=== PATIENT | female | born 1990 | race Caucasian/White ===

== ENCOUNTER 2017-04-08 15:32 | Emergency (ER) | payer MEDICAID, SELFPAY ==
[2017-04-08 15:43] VITALS: BP 121/71; PULSE 100; RESP 16; TEMP 36.6; O2SAT 97; BMI 19.9
[2017-04-08 16:07] VITALS: BP 121/71; PULSE 100; RESP 16; TEMP 36.6; O2SAT 97; BMI 20.9
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
== END 2017-04-08 16:46 | disposition home or self-care (01) ==
LOC: ER 16:00 → UTC 16:02
PROVIDERS: Emergency Provider Physician Assistant; Family Provider Nurse Practitioner Obstetrics & Gynecology; PCP Nurse Practitioner Obstetrics & Gynecology
DX: M62.830 Muscle spasm of back (principal); H60.501 Unspecified acute noninfective otitis externa, right ear; F17.210 Nicotine dependence, cigarettes, uncomplicated
CPT/HCPCS: 72110; 99202

== ENCOUNTER → 2020-07-02 12:47 | Outpatient (CLI) | payer OTHER, SELFPAY ==
--- NOTE | 2020-07-02 12:52 | US_ITS ---
PROCEDURE: MM DIG MAMM BI DX W/CAD Digital Breast Tomosynthesis Included CLINICAL INDICATION: breast mass COMPARISON: US US BREAST RT COMPLETE from 07/02/2020 US US BREAST LT COMPLETE from 07/02/2020 TECHNIQUE: Standard CC and MLO images and 3D Tomosynthesis was obtained. R2 CAD reviewed. FINDINGS: Average to dense fibroglandular tissue. No malignant appearing mass or malignant-appearing microcalcification evident. There is some asymmetry in the superior aspect of the right breast as seen on the MLO view but non on the repeat MLO nor confirmed by the tomographic images. Patient reports an area of palpable concern in the left breast at the 1 o'clock region. No malignant appearing mass or malignant-appearing microcalcification apparent. Right breast ultrasound: No cyst or evident. Behind the nipple there is isoechoic region which measures 9 x 4 mm wider than tall well-circumscribed with no obvious spiculation or calcification possibly due to small fibroadenoma. This may also be related to fibroglandular tissue. Six-month follow-up suggested. Left breast ultrasound: No cystic or solid lesions apparent. Fibroglandular tissue noted in the area of palpable concern. Small axillary nodes are present. IMPRESSION: No malignant appearing mass apparent. No abnormality corresponding to the area of palpable concern. Negative mammogram and negative ultrasound does not exclude the possibility of malignancy. If there is indeed a palpable nodule then, it should be managed on a clinical basis. Probably benign nodule noted on the ultrasound of the right breast for which six-month follow-up is suggested BI-RAD Category: 3 Probably Benign Finding Short Term Follow-up FOLLOW-UP: 6M 6Month Follow-up (A letter has been sent to the patient regarding results of the study.) Dictated by: Finn Herrera MD 07/07/2020 16:10 Finn Herrera MD in OV 07/07/2020 16:10
== END ==
PROVIDERS: PCP Internal Medicine Adolescent Medicine; Visit Provider Nurse Practitioner Obstetrics & Gynecology
DX: N63.42 Unspecified lump in left breast, subareolar (principal); N64.4 Mastodynia; N60.12 Diffuse cystic mastopathy of left breast
CPT/HCPCS: 76641; 77062; 77066; G0279

== ENCOUNTER 2020-09-21 12:23 | Emergency (ER) | payer OTHER, SELFPAY ==
[2020-09-21 12:36] VITALS: BP 104/65; PULSE 80; RESP 12; TEMP 36.9; O2SAT 97; BMI 24.7
[2020-09-21 12:47] LABS: UTC Strep Screen (Rapid) Positive (Negative)
--- NOTE | 2020-09-21 12:49 | HMH.EDUTC ---
[facility] [place] Clinical Impression: Strep throat Disposition: Home, Self-Care Condition on Discharge: Good Instructions: Strep Throat, DI for Strep Throat Additional Instructions: Drink plenty of fluids. Take tylenol or ibuprofen for pain or fever. Take the medications as directed. Follow up with your regular doctor. GO TO THE ER FOR ANY WORSENING SYMPTOMS Throw your tooth brush away and get a new one. Prescriptions: Brompheniramine/Pseudoephed/Dm [Bromfed Dm Cough Syrup] 5 ml PO Q6HP PRN #240 syrup PRN Reason: Cough Transmission Status: Received by [facility] Amoxicillin [Amoxicillin 500mg Tab] 500 mg PO TID 10 Days #30 tab Transmission Status: Received by [facility] predniSONE [Deltasone 10mg tablet] 10 mg PO BID 3 Days #6 tab Transmission Status: Received by [facility] Referrals: Satish Downs MD [Primary Care Provider] - Forms: Work/School Release Time of Disposition: 12:52 Medical Decision Making - Medical Records Medical records reviewed: No: I reviewed the patient's medical records. - Gerry Inquiry Pt receiving controlled substance: No Vital Signs: 09/21/20 12:36 09/21/20 12:59 Temperature 98.5 F 98.5 F Temperature Source Oral Pulse Rate 78 Pulse Rate [Left] 80 Respiratory Rate 12 16 Blood Pressure 109/71 L Blood Pressure [Right Arm] 104/65 L Blood Pressure Mean [Right Arm] 78 Blood Pressure Source [Right Arm] Automatic Cuff 02 Sat by Pulse Oximetry 97 - Lab Data Lab results reviewed: Yes: I reviewed the patient's lab results. Lab Results 09/21/20 12:39: Strep Scn Rapid Clinic Positive A [facility] [place] HPI - General Stated complaint: sore throat Time Seen by Provider: 09/21/20 12:49 Mode of Arrival: Ambulatory Source of Information: Patient Limitations: No Limitations Description of Symptoms (Recalled from Triage Doc. by RN): pt c/o a sore throat. HEENT Symptoms (Recalled from RN notes): Yes (sore throat) Resp Symptoms (Recalled from RN notes): No Skin Symptoms (Recalled from RN notes): No MS Symptoms (Recalled from RN notes): No Functional Status (Recalled from RN notes): na - History of Present Illness Provider Complaint: She states that she has had a sore throat for the past 2 days. She has had lymph nodes swollen on the right side of her neck also. She has had a very poor appetite also. - Related Data Home Medications Medication Instructions Recorded Confirmed vitamin B complex 1 tab PO DAILY 07/02/20 07/02/20 Previous Rx's Medication Instructions Recorded Amoxicillin [Amoxicillin 500mg Tab] 500 mg PO TID 10 Days #30 tab 09/21/20 Brompheniramine/Pseudoephed/Dm 5 ml PO Q6HP PRN #240 syrup 09/21/20 [Bromfed Dm Cough Syrup] predniSONE [Deltasone 10mg tablet] 10 mg PO BID 3 Days #6 tab 09/21/20 Allergies Allergy/AdvReac Type Severity Reaction Status Date / Time LEMON Allergy Intermediate S-SWELLS-OR Uncoded 07/02/20 09:09 AL/THROAT - Worker's Comp Is this a Worker's Comp case?: No [facility] History - Hepatitis A Screen Drug use history?: No High risk sexual behaviors?: No History of sexually transmitted infection?: No Currently employed?: No Childcare worker?: No Do you have indoor plumbing?: Yes Do you have electricity?: Yes Attestation statement:: This patient has been screened for Hepatitis A risk factors. 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 #5, spontaneous ROS Obtain
[2020-09-21 12:59] VITALS: BP 109/71; PULSE 78; RESP 16; TEMP 36.9
== END 2020-09-21 13:01 | disposition home or self-care (01) ==
PROVIDERS: Emergency Provider Nurse Practitioner Family; PCP Internal Medicine Adolescent Medicine
DX: J02.0 Streptococcal pharyngitis (principal)
CPT/HCPCS: 87880; 99202; G0463

== ENCOUNTER 2020-11-18 12:34 | Emergency (ER) | payer OTHER, SELFPAY ==
[2020-11-18 14:20] VITALS: BP 112/73; PULSE 77; RESP 18; TEMP 37; O2SAT 96; BMI 22.7
[2020-11-18 14:47] LABS: UTC Strep Screen (Rapid) Positive (Negative)
--- NOTE | 2020-11-18 14:48 | HMH.EDUTC ---
[facility] [place] Clinical Impression: Strep throat Disposition: Home, Self-Care Condition on Discharge: Good Instructions: Strep Throat, DI for Strep Throat Additional Instructions: *Monitor Temp, Over the counter Motrin or Tylenol as directed/as needed Tylenol every 4 hours and Motrin every 6 hours (as long as your family doctor has told you that you can take it) for fever or pain. and straight to ER if unable to lower temp less than 101.0 after medication given *Warm salt water gargles may help to soothe the throat *Throat Lozenges *Warm fluids like tea with honey may help to soothe the throat *Sleep elevated *Humidifier/Vaporizer Take medication as prescribed Follow up IMMEDIATELY for new or worsening symptoms or no Noticeable improvement over the next 48-72 hours. 911 for difficulty breathing or swallowing Prescriptions: Amoxicillin [Amoxicillin 500mg Cap] 500 mg PO TID #30 cap Transmission Status: Pending to [facility] Referrals: Satish Downs MD [Primary Care Provider] - As needed Time of Disposition: 14:54 Medical Decision Making - Gerry Inquiry Pt receiving controlled substance: No Gerry was queried for this patient: No Vital Signs: 11/18/20 14:20 Temperature 98.6 F Temperature Source Oral Pulse Rate [Right Brachial] 77 Respiratory Rate 18 Blood Pressure [Right Arm] 112/73 Blood Pressure Mean [Right Arm] 86 Blood Pressure Source [Right Arm] Automatic Cuff Blood Pressure Position [Right Arm] Sitting 02 Sat by Pulse Oximetry 96 Oxygen Delivery Method Room Air - Lab Data Lab results reviewed: Yes: I reviewed the patient's lab results. Lab Results 11/18/20 14:25: Strep Scn Rapid Clinic Positive A [facility] [place] HPI - General Stated complaint: sore throat Time Seen by Provider: 11/18/20 14:48 Mode of Arrival: Ambulatory Source of Information: Patient Limitations: No Limitations Description of Symptoms (Recalled from Triage Doc. by RN): PATIENT C/O SORE THROAT SINCE YESTERDAY HEENT Symptoms (Recalled from RN notes): Yes Resp Symptoms (Recalled from RN notes): No Skin Symptoms (Recalled from RN notes): No MS Symptoms (Recalled from RN notes): No Functional Status (Recalled from RN notes): WNL - History of Present Illness Provider Complaint: Patient state that she noticed her throat was feeling scratchy and hurting yesterday and has continued to get worse States that feels like it did when she had strep throat - Related Data Previous Rx's Medication Instructions Recorded Amoxicillin [Amoxicillin 500mg 500 mg PO TID #30 cap 11/18/20 Cap] Allergies Allergy/AdvReac Type Severity Reaction Status Date / Time LEMON Allergy Intermediate S-SWELLS-OR Uncoded 07/02/20 09:09 AL/THROAT - Worker's Comp Is this a Worker's Comp case?: No [facility] History - Hepatitis A Screen Drug use history?: No High risk sexual behaviors?: No History of sexually transmitted infection?: No Currently employed?: No Childcare worker?: No Do you have indoor plumbing?: Yes Do you have electricity?: Yes Attestation statement:: This patient has been screened for Hepatitis A risk factors. 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 #5, spontaneous ROS Obtained: Yes All systems reviewed & no additional complaints, Yes Systems reviewed as appropriate & no additional complaints - Constitutional Constitutional: Reports headache(s) - Eyes Eyes: Reports system reviewed and no ad
[2020-11-18 14:55] VITALS: BP 112/73; PULSE 77; RESP 18; TEMP 37; O2SAT 96
[2020-11-18 14:58] VITALS: BP 122/74; PULSE 80; RESP 16; TEMP 37.2; O2SAT 98
== END 2020-11-18 15:00 | disposition home or self-care (01) ==
PROVIDERS: Emergency Provider Nurse Practitioner; PCP Internal Medicine Adolescent Medicine
DX: J02.0 Streptococcal pharyngitis (principal)
CPT/HCPCS: 87880; 99202; G0463

== ENCOUNTER 2022-02-08 14:18 | Emergency (ER) | payer OTHER, SELFPAY ==
[2022-02-08] VITALS (7 sets, daily range): BP systolic 95–117; BP diastolic 67–73; PULSE 56–78; RESP 16; TEMP 36.7; O2SAT 97–100; BMI 24.3
--- NOTE | 2022-02-08 14:46 | HMH.EDGENADL ---
Discharge Plan Disposition Patient Disposition: Home, Self-Care Condition: Good Prescriptions Prescriptions: New ibuprofen 600 mg tablet 600 mg PO Q8H PRN (Reason: pain) Qty: 30 0RF ondansetron 4 mg tablet,disintegrating 4 mg PO Q6H PRN (Reason: nausea and vomiting) Qty: 12 0RF No Action amoxicillin 500 MG capsule 500 mg PO TID Qty: 30 0RF Referrals Follow up/Referrals: Satish Downs MD [Primary Care Provider] - See instructions Activity Restrictions/Add. Instructions Additional Instructions/Restrictions: You have been evaluated for lower abdominal pain, diagnosed with an ovarian cyst. The cyst is quite large, 7 cm. It is very important that you follow-up with an PLACEMENT ASSISTANT for repeat evaluation and ultrasound. Take anti-inflammatory medication, ibuprofen. Return to the emergency department at once for any new or worsening symptoms, severe pain, vomiting, fevers, other concerns Clinical Impressions Clinical Impression: Ovarian cyst Instructions Patient Instructions: DI for Ovarian Cyst Discharge ED Provider: Shannon Gabriel Adult HPI General Chief complaint: Abdominal Pain Stated complaint: severe abd pian left side Time Seen by Provider: 02/08/22 14:39 History of Present Illness HPI narrative: 31-year-old female presenting to the emergency department lower abdominal pain. Pain is located on the left side. Described as sharp, stabbing. Pain started suddenly this morning around 5:30 AM while she was at work. Has been constant since onset. Occasionally motion makes it better. She is currently on her menses. This has been a longer menstrual cycle than normal. She has a history of ovarian cysts, but never anything like this. No hematuria or dysuria. No history of kidney stones. No vaginal discharge or concern for urinary tract infection. She took 1000 mg Tylenol a few hours ago. No other medications prior to arrival. With fevers, chills, vomiting. No constipation, diarrhea, changes in bowel habits. Related Data Previous Rx's Medication Instructions Recorded amoxicillin 500 mg capsule 500 mg PO TID #30 caps 11/18/20 ibuprofen 600 mg tablet 600 mg PO Q8H PRN pain #30 tabs 02/08/22 ondansetron 4 mg disintegrating 4 mg PO Q6H PRN nausea and 02/08/22 tablet vomiting #12 tabs Allergies Allergy/AdvReac Type Severity Reaction Status Date / Time LEMON Allergy Intermediate S-KIRILLS-OR Uncoded 07/02/20 09:09 AL/THROAT PFSH PFS Social History Smoking Status: Current every day smoker tobacco type: cigarettes alcohol intake: never substance use type: denies use current occupational status: other Travel in the last 8 weeks: None ROS Obtained: Yes All systems reviewed & no additional complaints except as documented Constitutional Constitutional: Denies chills, Denies fever(s) and Denies headache(s) ENT Ears, Nose, Mouth, and Throat: Denies dizziness and Denies headache(s) Cardiovascular Cardiovascular: Denies chest pain and Denies dyspnea Respiratory Respiratory: Denies cough and Denies dyspnea Gastrointestinal Gastrointestingal: Reports abdominal pain (left lower) and cramping; Denies constipation, diarrhea, nausea or vomiting Genitourinary Female Genitourinary: Denies dysuria, Denies hematuria, Reports menorrhagia and Reports pelvic pain Musculoskeletal Musculoskeletal: Denies back pain Neurologic Neurologic: Denies dizziness and Denies headache(s) Hematologic/Lymphatic Henatologic/Lymphatic: Denies easy bleeding and Denies easy bruising Physical Exam General General appearance: alert and in no apparent distress Head Head exam: atraumatic and normocephalic ENT ENT exam: Present normal exam, normal oropharynx and mucous membranes moist Respiratory Respiratory exam: Present normal lung sounds bilaterally; Absent respiratory distress or wheezes Cardiovascular Cardiovascular exam: Present regular rate and normal rhythm Abdominal Exam Abdominal exam: Pres
[2022-02-08 14:58] LABS: Chloride 105 mmol/L (98-107); Potassium 3.9 mmoL/L (3.5-5.1); Sodium 141 mmol/L (136-145)
[2022-02-08 14:59] LABS: Basophils # 0.1 K/mm3 (0-0.2); Basophils % 0.6 % (0.1-2.0); Eosinophils # 0.1 K/mm3 (0.0-0.4); Eosinophils % 1.2 % (0.1-12.0); Hematocrit 40.9 % (37.0-47.0); Hemoglobin 13.6 g/dL (12.2-16.2); Lymphocytes # 1.3 K/mm3 (0.7-4.5); Lymphocytes % 17.1 % (10-50); Mean Corpuscular HGB Conc 33.4 g/dL (31.8-35.4); Mean Corpuscular Hemoglobin 30.7 pg (27.0-31.2); Mean Corpuscular Volume 92.1 fl (81-99); Mean Platelet Volume 8.2 fl (7.4-10.4); Monocytes # 0.4 K/mm3 (0.1-1.0); Neutrophils # 5.8 K/mm3 (1.8-7.8); Neutrophils % 76.2 % (37.0-80.0); Platelet Count 302 K/mm3 (142-424); Red Blood Count 4.44 M/mm3 (4.20-5.40); Red Cell Distribution Width 13.4 % (11.5-17.5); White Blood Count 7.6 K/mm3 (4.8-10.8)
[2022-02-08 15:01] LABS: Alanine Aminotransferase 20 U/L (12-78); Albumin Level 4.5 g/dl (3.5-5.0); Albumin/Globulin Ratio 1.5 (1.1-1.8); Alkaline Phosphatase 87 U/L (38-126); Anion Gap 12.9 mEq/L (5-15); Aspartate Amino Transferase 33 U/L (14-36); Bilirubin,Total 0.4 mg/dl (0.2-1.3); Blood Urea Nitrogen 4 mg/dl (7-17); Carbon Dioxide 27 mmol/L (22.0-30.0); Estimated Glomerular Filt Rate 98 ml/min (>60); GFR (African American) 119 ML/MIN (>60); Total Protein,Serum 7.5 g/dl (6.3-8.2)
[2022-02-08 15:02] LABS: Calcium 9.6 mg/dl (8.4-10.2); Glucose 93 mg/dl (74-100)
--- NOTE | 2022-02-08 15:03 | PC.NURSE ---
PT DOES NOT WANT TORADOL AT THIS TIME SHE SAID SHE WANTED TO WAIT
--- NOTE | 2022-02-08 15:08 | PC.NURSE ---
pt aware needs a urine specimen, pt states unable to urinate at this time
--- NOTE | 2022-02-08 15:09 | CT_ITS ---
FINAL REPORT CLINICAL HISTORY: lower abdominal pain FINDINGS: CT OF THE ABDOMEN AND PELVIS WITH CONTRAST Axial CT images of the abdomen and pelvis were obtained after the administration of oral and iv contrast. Coronal reformatted images were also obtained and reviewed.This study was performed with techniques to keep radiation doses as low as reasonably achievable (ALARA). Individualized dose reduction techniques using automated exposure control or adjustment of mA and/or kV according to the patient's size were employed. Abdomen: The lung bases are clear. The heart is normal in size. There is a 6 mm low-attenuation mass in the posterior right hepatic lobe that is difficult to characterize but may represent a small cyst. The gallbladder is present. The spleen is unremarkable. No adrenal mass is present. The pancreas has an unremarkable appearance. The kidneys are normal, without evidence of mass or hydronephrosis. The aorta is normal in caliber. There is no free fluid or adenopathy. There is a small umbilical hernia containing fat. Pelvis: The appendix is normal. The urinary bladder is unremarkable. There are small follicles in the ovaries without a dominant mass. There is a small amount of pelvic free fluid which could be physiologic or reactive. There is a cystic mass in the lower pelvis measuring 9.4 x 6.8 cm in maximal axial dimensions with a calcification along the right side and focal areas of abnormal soft tissue thickening. There is no evidence of bowel obstruction. IMPRESSION: Cystic mass in the lower pelvis could represent cystic ovarian neoplasm versus cyst. Reviewed, Interpreted and Dictated by Curt Combs III, MD Transcribed by Saturnino Mendes Authenticated and [facility]
[2022-02-08 15:11] LABS: HCG Qualitative, Serum Negative (Negative)
[2022-02-08 15:29] LABS: Microscopic, Urine URINE MICROSCOPIC (MICROSCOPIC)
[2022-02-08 15:35] LABS: Appearance,Urine CLEAR (Clear); Bilirubin,Urine Negative (Negative); Blood, Urine 2+ (Negative); Color,Urine YELLOW (Yellow); Glucose,Urine (UA) Negative (Negative); Ketones,Urine Negative (Negative); Leukocyte Esterase,Urine TRACE (Negative); Nitrate,Urine Negative (Negative); Protein,Urine Negative (Negative); Specific Gravity, Urine >= 1.030 (1.005-1.030); Urobilinogen,Urine 0.2 EU/dl (0.2)
[2022-02-08 15:53] LABS: Bacteria,Urine Trace /lpf
--- NOTE | 2022-02-08 17:19 | US_ITS ---
PROCEDURE INFORMATION: Exam: US Pelvis, Transvaginal Exam date and time: 02/08/2022 5:21 PM Age: 31 years old Clinical indication: Pelvic pain; Additional info: RO torsion TECHNIQUE: Imaging protocol: Real-time transvaginal pelvic ultrasound with image documentation. Transvaginal imaging was used for better evaluation of the endometrium, adnexa, and/or cervix. COMPARISON: TVP US TRANSVAGINAL PREG 04/28/2016 3:37 PM FINDINGS: Uterus: The uterus measures 9.7 x 4.6 x 5.2 cm. No focal myometrial lesions . Endometrium measures 6.1 mm. Cervix: There is a 0.5 cm nabothian cyst Right ovary/adnexa: The right ovary measures 3.9 x 2.7 x 2.0 cm (11.3 mL) Ovarian stroma is unremarkable. There is normal arterial inflow and venous outflow. Left ovary/adnexa: The left ovary measures 8.3 x 8.1 x 7.0 cm (250.4 mL ) there are 2 dominant follicles measuring 8.9 and 6.9 cm respectively. Ovarian stroma is otherwise unremarkable. There is normal arterial inflow and venous outflow. Intraperitoneal space: No free fluid. IMPRESSION: Two simple left ovarian cysts/dominant follicles. In cyst greater than 7 cm follow-up either in 2-6 months for resolution/recharacterization or in 6-12 months for growth rate assessment.
--- NOTE | 2022-02-08 17:23 | PC.NURSE ---
rad notified of u/s order, staff states she is in with a pt and then will get staff called in
== END 2022-02-08 18:37 | disposition home or self-care (01) ==
PROVIDERS: Emergency Provider Emergency Medicine; PCP Internal Medicine Adolescent Medicine
DX: N83.292 Other ovarian cyst, left side (principal)
CPT/HCPCS: 74177; 76830; 80053; 81001; 84703; 85025; 96374; 99285; Q9967

== ENCOUNTER 2022-04-17 12:54 | Emergency (ER) | payer OTHER, SELFPAY ==
[2022-04-17 12:56] VITALS: BP 110/79; PULSE 68; RESP 18; TEMP 36.5; O2SAT 96; BMI 24.7
--- NOTE | 2022-04-17 12:58 | HMH.EDABDPAI ---
Discharge Plan Disposition Patient Disposition: Home, Self-Care Condition: Fair Prescriptions Prescriptions: New hydrocodone-acetaminophen 5-325 mg tablet 1 tab PO TID PRN (Reason: pain) Qty: 14 0RF No Action amoxicillin 500 MG capsule 500 mg PO TID Qty: 30 0RF ibuprofen 600 mg tablet 600 mg PO Q8H PRN (Reason: pain) Qty: 30 0RF ondansetron 4 mg tablet,disintegrating 4 mg PO Q6H PRN (Reason: nausea and vomiting) Qty: 12 0RF Referrals Follow up/Referrals: Rachel Hernandez DO [Staff Physician] - 3 days (Large left-sided hemorrhagic ovarian cyst., Possible teratoma.) Satish Downs MD [Primary Care Provider] - See instructions Activity Restrictions/Add. Instructions Additional Instructions/Restrictions: Return to the emergency department immediately if you feel worse in any way. Follow-up with Dr. Hernandez on Tuesday. Call her office for an exact appointment. Clinical Impressions Clinical Impression: Hemorrhagic cyst of left ovary Instructions Patient Instructions: DI for Ovarian Cyst, DI for Acute Abdominal Pain Discharge ED Provider: Johnny Yap Abdominal Pain HPI General Chief Complaint: Abdominal Pain Stated Complaint: abd pain Time Seen by Provider: 04/17/22 12:58 Mode of Arrival: Ambulatory History of Present Illness HPI narrative: The patient presents to the emergency department complaining of left-sided abdominal pain for the last 5 days or so. She was seen in another emergency department on and was told that a large left ovarian cyst had ruptured. She was discharged with Toradol and Zofran at that time. She states that the pain is still quite significant despite the Toradol. She also states that she feels swollen. She denies any vaginal bleeding. She has had a tubal ligation. She also denies diarrhea or vomiting. Related Data Previous Rx's Medication Instructions Recorded amoxicillin 500 mg capsule 500 mg PO TID #30 caps 11/18/20 ibuprofen 600 mg tablet 600 mg PO Q8H PRN pain #30 tabs 02/08/22 ondansetron 4 mg disintegrating 4 mg PO Q6H PRN nausea and 02/08/22 tablet vomiting #12 tabs hydrocodone 5 mg-acetaminophen 325 1 tab PO TID PRN pain #14 tabs 04/17/22 mg tablet Allergies Allergy/AdvReac Type Severity Reaction Status Date / Time LEMON Allergy Intermediate S-SWELLS-OR Uncoded 07/02/20 09:09 AL/THROAT [facility] Disclaimer: The information contained in this section may have been updated after the patient was seen, as this information can be updated by other users. Social History Smoking Status: Current some day smoker tobacco type: cigarettes alcohol intake: never substance use type: denies use current occupational status: other Travel in the last 8 weeks: None ROS Obtained: Yes All systems reviewed & no additional complaints except as documented ENT Ears, Nose, Mouth, and Throat: Reports disequilibrium, Reports dizziness and Reports other (The patient feels congested on the right side of her sinuses.) Neurologic Neurologic: Reports disequilibrium and Reports dizziness Physical Exam General General appearance: alert Head Head exam: atraumatic Eye Eye exam: Present normal appearance; Absent scleral icterus ENT ENT exam: Present normal exam Neck Neck exam: Present normal inspection and full ROM; Absent tenderness or meningismus Chest Chest inspection: Present normal inspection and symmetric chest wall rise; Absent tenderness Respiratory Respiratory exam: Present normal lung sounds bilaterally; Absent respiratory distress or accessory muscle use Cardiovascular Cardiovascular exam: Present regular rate, normal rhythm and normal heart sounds Abdominal Exam Abdominal exam: Present soft, tenderness and normal bowel sounds; Absent distention, psoas sign, obturator sign, heel tap sign, Wyatt's sign, Rovsing's sign, tenderness at McBurney's Point or mass Abdominal tenderness: Present LLQ (mild) Extremities Exam Extremities e
[2022-04-17 13:15] LABS: Microscopic, Urine URINE MICROSCOPIC (MICROSCOPIC)
[2022-04-17 13:16] LABS: Appearance,Urine SL CLOUDY (Clear); Blood, Urine TRACE-I (Negative); Color,Urine YELLOW (Yellow); Glucose,Urine (UA) Negative (Negative); Ketones,Urine TRACE (Negative); Leukocyte Esterase,Urine Negative (Negative); Nitrate,Urine POSITIVE (Negative); PH,Urine 5.5 (5.0-8.5); Protein,Urine Negative (Negative); Specific Gravity, Urine >= 1.030 (1.005-1.030); Urobilinogen,Urine 0.2 EU/dl (0.2)
[2022-04-17 13:24] LABS: Bilirubin,Urine 1+ (Negative)
--- NOTE | 2022-04-17 13:27 | CT_ITS ---
PROCEDURE INFORMATION: Exam: CT Abdomen And Pelvis With Contrast Exam date and time: 04/17/2022 1:55 PM Age: 32 years old Clinical indication: Abdominal pain; Flank; Left lower quadrant (llq); Additional info: Left-sided abdominal pain TECHNIQUE: Imaging protocol: Computed tomography of the abdomen and pelvis with contrast. Radiation optimization: All CT scans at this facility use at least one of these dose optimization techniques: automated exposure control; mA and/or kV adjustment per patient size (includes targeted exams where dose is matched to clinical indication); or iterative reconstruction. Contrast material: ISOVUE; Contrast volume: 75 ml; Contrast route: IV; Other protocol: This patient has received [address] and 0 known cardiac nuclear medicine studies in the 12 months prior to the current study. COMPARISON: CT ABDOMEN PELVIS W CON 02/08/2022 3:33 PM FINDINGS: Liver: Normal. No mass. Gallbladder and bile ducts: Normal. No calcified stones. No ductal dilation. Pancreas: Normal. No ductal dilation. Spleen: Normal. No splenomegaly. Adrenal glands: Normal. No mass. Kidneys and ureters: Normal. No hydronephrosis. Stomach and bowel: Unremarkable. No obstruction. No mucosal thickening. Appendix: No evidence of appendicitis. Intraperitoneal space: Unremarkable. No free air. No significant fluid collection. Vasculature: Flow within the superior mesenteric artery, celiac trunk and inferior mesenteric arteries. Lymph nodes: Unremarkable. No enlarged lymph nodes. Urinary bladder: Unremarkable as visualized. Reproductive: 2.6 cm ovarian cyst on the right. Moderate amount of fluid in the pelvis. Probable hemorrhagic ovarian cyst. Large predominantly cystic mass extending out of the pelvis measuring approximately 8 cm x 10 cm x 10 cm. Calcification superiorly resembles a tooth. Possible teratoma. Possible ovarian cyst versus cyst adenoma/cystadenocarcinoma. Bones/joints: Unremarkable. No acute fracture. Soft tissues: Unremarkable. IMPRESSION: 1. 2.6 cm ovarian cyst on the right. Moderate amount of fluid in the pelvis. Probable hemorrhagic ovarian cyst. 2. Large predominantly cystic mass extending out of the pelvis measuring approximately 8 cm x 10 cm x 10 cm. Calcification superiorly resembles a tooth. Possible teratoma. Possible ovarian cyst versus cyst adenoma/cystadenocarcinoma. Previously noted.
[2022-04-17 13:31] LABS: Bacteria,Urine 4+ /lpf; Squamous Epithelial Cell,Urine Occasional #/hpf (0-5)
[2022-04-17 13:41] LABS: Basophils # 0.1 K/mm3 (0-0.2); Basophils % 0.9 % (0.1-2.0); Eosinophils # 0.1 K/mm3 (0.0-0.4); Eosinophils % 2.6 % (0.1-12.0); Hematocrit 35.8 % (37.0-47.0); Hemoglobin 12.4 g/dL (12.2-16.2); Lymphocytes # 1.2 K/mm3 (0.7-4.5); Mean Corpuscular HGB Conc 34.7 g/dL (31.8-35.4); Mean Corpuscular Hemoglobin 31.7 pg (27.0-31.2); Mean Corpuscular Volume 91.4 fl (81-99); Monocytes # 0.3 K/mm3 (0.1-1.0); Monocytes % 6.1 % (1.7-9.3); Neutrophils # 3.4 K/mm3 (1.8-7.8); Neutrophils % 67.4 % (37.0-80.0); Platelet Count 245 K/mm3 (142-424); Red Blood Count 3.92 M/mm3 (4.20-5.40); Red Cell Distribution Width 13.6 % (11.5-17.5); White Blood Count 5.1 K/mm3 (4.8-10.8)
[2022-04-17 13:44] LABS: Chloride 108 mmol/L (98-107); Potassium 3.6 mmoL/L (3.5-5.1); Sodium 142 mmol/L (136-145)
[2022-04-17 13:47] LABS: Alanine Aminotransferase 18 U/L (12-78); Albumin Level 4.1 g/dl (3.5-5.0); Albumin/Globulin Ratio 1.5 (1.1-1.8); Alkaline Phosphatase 59 U/L (38-126); Anion Gap 10.6 mEq/L (5-15); Aspartate Amino Transferase 25 U/L (14-36); Bilirubin,Total 0.4 mg/dl (0.2-1.3); Blood Urea Nitrogen 7 mg/dl (7-17); Calcium 8.4 mg/dl (8.4-10.2); Carbon Dioxide 27 mmol/L (22.0-30.0); Creatinine Clearance Estimated 117 mL/min (50-200); Estimated Glomerular Filt Rate 98 ml/min (>60); GFR (African American) 118 ML/MIN (>60); Globulin 2.7 g/dL (1.3-3.2); Glucose 89 mg/dl (74-100); Total Protein,Serum 6.8 g/dl (6.3-8.2)
[2022-04-17 14:00] LABS: HCG Qualitative, Serum Negative (Negative)
--- NOTE | 2022-04-17 14:38 | PC.NURSE ---
ELTON KOTHARI speaking with rigoberto
--- NOTE | 2022-04-17 14:55 | PC.NURSE ---
degreasing wheel operator paging ob special education associate
--- NOTE | 2022-04-17 14:56 | PC.NURSE ---
MD ON PHONE WITH OB
[2022-04-17 15:25] VITALS: BP 127/80; PULSE 82; RESP 16; O2SAT 99
--- NOTE | 2022-04-17 15:26 | PC.NURSE ---
asked ER MD about pt possibly having UTI r/t nitrate positive and 4+ bacteria, ER MD states pt does not have urinary complaints so pt does not need to be treated with antibiotics
[2022-04-17 15:30] VITALS: BP 127/80; PULSE 68; RESP 16; TEMP 36.7; O2SAT 99
== END 2022-04-17 15:30 | disposition home or self-care (01) ==
PROVIDERS: Emergency Provider Emergency Medicine; PCP Internal Medicine Adolescent Medicine
DX: N83.202 Unspecified ovarian cyst, left side (principal); F17.210 Nicotine dependence, cigarettes, uncomplicated
CPT/HCPCS: 74177; 80053; 81001; 84703; 85025; 87086; 87088; 87186; 99285; Q9967

== ENCOUNTER → 2022-04-26 09:15 | Outpatient (CLI) | payer OTHER, SELFPAY ==
[2022-04-26 10:23] LABS: Basophils % 0.7 % (0.1-2.0); Eosinophils # 0.1 K/mm3 (0.0-0.4); Eosinophils % 2.4 % (0.1-12.0); Hematocrit 39.4 % (37.0-47.0); Hemoglobin 12.6 g/dL (12.2-16.2); Lymphocytes # 1.7 K/mm3 (0.7-4.5); Lymphocytes % 30.4 % (10-50); Mean Corpuscular HGB Conc 32.1 g/dL (31.8-35.4); Mean Corpuscular Hemoglobin 29.9 pg (27.0-31.2); Mean Corpuscular Volume 93.2 fl (81-99); Mean Platelet Volume 8.8 fl (7.4-10.4); Monocytes # 0.4 K/mm3 (0.1-1.0); Monocytes % 6.6 % (1.7-9.3); Neutrophils # 3.3 K/mm3 (1.8-7.8); Neutrophils % 59.9 % (37.0-80.0); Platelet Count 251 K/mm3 (142-424); Red Blood Count 4.22 M/mm3 (4.20-5.40); Red Cell Distribution Width 13.5 % (11.5-17.5); White Blood Count 5.5 K/mm3 (4.8-10.8)
[2022-04-26 11:29] LABS: Chloride 109 mmol/L (98-107); Sodium 140 mmol/L (136-145)
[2022-04-26 11:30] LABS: Potassium 3.8 mmoL/L (3.5-5.1)
[2022-04-26 11:32] LABS: Alanine Aminotransferase 33 U/L (12-78); Albumin Level 4.1 g/dl (3.5-5.0); Albumin/Globulin Ratio 1.6 (1.1-1.8); Alkaline Phosphatase 51 U/L (38-126); Anion Gap 10.8 mEq/L (5-15); Aspartate Amino Transferase 25 U/L (14-36); Bilirubin,Total 0.5 mg/dl (0.2-1.3); Blood Urea Nitrogen 10 mg/dl (7-17); Carbon Dioxide 24 mmol/L (22.0-30.0); Estimated Glomerular Filt Rate 98 ml/min (>60); GFR (African American) 118 ML/MIN (>60); Globulin 2.6 g/dL (1.3-3.2); Total Protein,Serum 6.7 g/dl (6.3-8.2)
[2022-04-26 11:33] LABS: Glucose 123 mg/dl (74-100)
[2022-04-26 11:47] LABS: HCG,Quantitative < 2 mIU/ml (0-5.42)
== END ==
PROVIDERS: PCP Internal Medicine Adolescent Medicine; Visit Provider Nurse Practitioner Obstetrics & Gynecology
DX: Z01.812 Encounter for preprocedural laboratory examination (principal); D27.9 Benign neoplasm of unspecified ovary
CPT/HCPCS: 36415; 80053; 84702; 85025

== ENCOUNTER 2022-04-27 10:03 | Day surgery (SDC) | payer OTHER, SELFPAY ==
[2022-04-26 10:18] VITALS: BMI 24.0
[2022-04-27] VITALS (11 sets, daily range): BP systolic 100–132; BP diastolic 60–71; PULSE 78–102; RESP 16–20; TEMP 36.5–43; O2SAT 96–100
[2022-04-27 10:30] LABS: Urine Pregnancy, HCG Qual. Negative (Negative)
[2022-04-27 10:33] LABS: POC Glucose,Bedside 85 (70-110)
--- NOTE | 2022-04-27 10:42 | EXP.ANES.CKL ---
[facility] Disclaimer: The information contained in this section may have been updated after the patient was seen, as this information can be updated by other users. Medical History Hypoglycemia Surgical History H/O tubal ligation Family History Other Alcoholism Cancer FHx: mental illness Heart attack Hyperlipidemia Hypertension Kidney disease Stroke Thyroid disorder Social History Smoking Status: Current some day smoker tobacco type: cigarettes alcohol intake: never substance use type: denies use current occupational status: employed and other Travel in the last 8 weeks: None [facility] Anesthesia Checklist Patient Identification Patient Identification: Arm Band and Verbal (Name & ) Structural Data Admitted From: Home Planned Operative Procedure/s: Hyst/D & C/ Lap. oopherectomy Consent for Planned Operative Procedure(s) Verified: Yes NPO Status Verified Time NPO: 00:00 Additional verifications Anesthesia Reactions: No Hx Blood Transfusions: No Blood Transfusion Reaction: No Airway Assessment C-Spine Mobility Assessed: Yes TMJ Mobility Assessed: Yes Dentition: Good Dentition Neurological Assessment Level of Consciousness: Awake Hx Seizures: No Numbness or tingling in extremities: No Anesthesia Plan Anesthesia Risk discussed: Yes Anesthesia Plan: Verified ASA Class: I Anesthesia Type: MAC
--- NOTE | 2022-04-27 13:10 | EXP.ANES.I ---
[facility] Anesthesia Record Part I Anesthesia Record I Intake, IV Amount: 900 Estimated blood loss (mL): 150 Urine output (mL): 0 Blood Pressure: 112/60 SaO2: 96 Pulse Rate: 78 Respiratory Rate: 19 Temperature: 97.8 F Patient is:: Drowsy Stable to PACU at:: 13:09
--- NOTE | 2022-04-27 13:50 | EXP.OP.NOTE ---
Date of procedure: 04/27/22 Pre-op Diagnosis:: Left dermoid cyst, menorrhagia Post-op Diagnosis:: Left dermoid cyst, menorrhagia Procedure performed:: Diagnostic laparoscopy, left ovarian cystectomy, hysteroscopy, dilation and curettage, NovaSure ablation Surgeon:: Mohan Sifuentes MD STUDENT LIFE COORDINATOR:: Cleopatra Trammell Anesthesia: GETA Estimated blood loss (mL): 150 Clinical Note:: She is a 32-year-old lady who complains of left lower quadrant pain as well as very heavy periods. An ultrasound showed what appeared to be an 8 cm cyst with clear fluid and there were areas that were consistent with a dermoid. They saw a possible tooth. She also has had extremely heavy periods and as a result of that we offered Operative findings:: She had an 8 cm left ovarian cyst that was filled with clear fluid as well within the cyst there was a 2 cm x 2 cm area that was filled with sebaceous material. The pelvis appeared normal. There was a small adhesion from the left uterosacral ligament that I took down. The appendix appeared normal. The upper abdomen appeared normal. The endometrial cavity appeared normal. It was somewhat lush. Operative note:: She was taken the operating room where general anesthesia was found to be adequate. She was prepped draped normal sterile fashion in the semilithotomy position. Was placed in vagina and the anterior lip of the cervix was grasped with a tenaculum. I then dilated the cervix to approximately 4 mm. I then inserted a Gina uterine manipulator into the uterine cavity. I changed gloves and injected 10 cc of ropivacaine around the umbilicus. I made a small incision within the umbilicus and inserted a Veress needle into the abdominal cavity. The abdominal cavity was then insufflated with carbon oxide gas to a pressure of 20 mmHg. I then inserted an 11 mm trocar under direct vision. I injected through and through the pubic hairline, made a small incision here and inserted a 5 mm trocar under direct vision. Similarly in the left lower quadrant I injected through and through after identifying the left inferior epigastric artery. I went lateral to this and inserted a 5 mm trocar under direct vision. The ovary was at least 8 cm in size and was clearly visible. Using harmonic scalpel I drilled into the ovary where the cyst was. There was copious straw-colored clear fluid. I then opened up the cyst and using traction countertraction dissected the cyst wall off the ovary. The last part of the cyst was adherent to the ovary and using harmonic scalpel I was able to remove the last bit of the tissue. This was then placed in an Endo Catch bag and removed through the 11 mm trocar site. There was a small adhesion from the sigmoid colon to the left uterosacral ligament and I took this down with harmonic scalpel. I then further inspected the pelvis and rinsed it with saline. The ovary was oozing slightly and I elected to place a large piece of Surgicel within the cavity of the ovary where the cyst had been located. I then injected 30 cc of ropivacaine into the pelvis. The secondary trocars were removed under direct vision after assuring hemostasis. The gas was letter the abdomen and the primary trocar and camera removed together. No bowel seen to follow. The 11 mm trocar site was closed by grasping the fascia with an Allis clamp and using running 2-0 Vicryl suture. I then placed a second deep 2-0 Vicryl suture to reapproximate the deep tissues. The skin was then closed with running subcuticular 4-0 Monocryl suture. The 5 mm trocar sites were closed with 4-0 Monocryl suture. Sterile dressings were applied. We then turned our attention to the NovaSure ablation part of the surgical procedure. A weighted speculum was placed in the vagina and the anterior lip of the cervix was grasped with a tenaculum. The cervix was then dilated to approximately 6 mm. I then inserted a hysteroscope into the uterine cavity and the findings were as previously dictat
--- NOTE | 2022-05-03 09:26 | P.PNANES_ITS ---
[facility] Anesthesia Record Part II Anesthesia Record Part II Discharge Time: 13:39 Destination: Surgical Day Care (OP Surgery) PACU nurse assessment reviewed?: Yes Patient Condition:: Good Anesthesia Complications:: None Swallowing reflex intact?: Yes Cyanosis?: No Blood Pressure: 121/69 Pulse Rate: 94 Temperature: 97.7 F Mental Status: Alert & Oriented Pain level:: 0 Nausea and/or vomitting:: None Intake, IV Amount: 0
[2022-05-03 09:28] VITALS: BP 121/69; PULSE 94; TEMP 36.5
== END 2022-04-27 14:29 | disposition home or self-care (01) ==
PROVIDERS: PCP Internal Medicine Adolescent Medicine; Visit Provider Nurse Practitioner Obstetrics & Gynecology
PROC: 0U5B8ZZ Destruction of Endometrium, Via Natural or Artificial Opening Endoscopic (ICD-10-PCS; CPT 58563; principal; 2022-04-27 11:30)
DX: D27.1 Benign neoplasm of left ovary (principal); N92.0 Excessive and frequent menstruation with regular cycle; Z72.0 Tobacco use; Z79.899 Other long term (current) drug therapy
CPT/HCPCS: 58563; 58662; 81025; 82962; 96374; J2405